=== PATIENT | female | born 1975 ===

== ENCOUNTER 2017-07-28 14:11 | Outpatient (CLI) | payer BC ==
--- NOTE | 2017-07-29 12:57 | Ultrasound Report ---
ULTRASOUND SONOHYSTEROGRAM: 07/28/17 14:30:00 CLINICAL: Infertility. Transabdominal and endovaginal [employer] consultant images of the uterus were performed. The uterus measured approximately 8.4 x 5.9 x 7.2 cm. A 1.6 cm linear echogenic and has a shadowing object was identified at the internal cervical os. The uterus is heterogeneous in echo pattern with no measurable uterine fibroids identified. The endometrium is normal and measures 2 mm AP thickness. Normal ovaries with normal follicles identified in each ovary. No adnexal mass or free fluid. Standard sterile prep and drape was employed. The cervix was probed with a dilator and a 5 [place] visceral sonogram catheter was introduced into the cervix. The catheter was met with resistance at the internal cervical os and I was unable to pass the catheter through the internal os and pass the echogenic shadowing structure that appears to obstruct the os. I was unsuccessful in introducing adequate fluid in the uterine cavity to distend the central cavity. The patient tolerated the procedure well and there were no apparent palpitations. IMPRESSION: Unsuccessful hysterosalpingogram due to obstruction of the cervix at the internal cervical os. The shadowing structure at the internal cervical os is probably a calcified fibroid. However, calcified scar and retained foreign body with scar are also possibilities.
== END 2017-07-28 14:12 | disposition home or self-care (01) ==
LOC: SPVWC 14:11
PROVIDERS: ATTEND Obstetrics & Gynecology
DX: N97.9 Female infertility, unspecified (principal)
CPT/HCPCS: 58340; 76831